=== PATIENT | female | born 1955 | race Caucasian/White ===

== ENCOUNTER → 2017-06-26 | Outpatient (CLI) | payer BC ==
[~2017-06-26] MED LIST: ASPIRIN E.C. 8181 MG PO; COUMADIN 5MG5 MG/TAB PO; LOVENOX 6060 MG/0.6 SQ; VERAPAMIL240 MG/TAB PO; ZESTRIL 10MG10 MG PO; ZOCOR5 MG PO
== END ==
LOC: MC.RAD 07:00
DX: Z12.31 Encounter for screening mammogram for malignant neoplasm of breast (principal)

== ENCOUNTER → 2018-06-27 | Outpatient (CLI) | payer BC | LOC: MC.RAD 07:00 | DX: Z12.31 Encounter for screening mammogram for malignant neoplasm of breast (principal); N64.89 Other specified disorders of breast ==

== ENCOUNTER → 2018-07-03 | Outpatient (CLI) | payer BC | LOC: MC.RAD 13:53 | DX: N64.89 Other specified disorders of breast (principal) | CPT/HCPCS: G0279 ==

== ENCOUNTER → 2019-09-10 | Outpatient (CLI) | payer BC | LOC: MC.RAD 07:27 | DX: Z12.31 Encounter for screening mammogram for malignant neoplasm of breast (principal) ==

== ENCOUNTER 2020-03-24 13:42 | Emergency (ER) | payer SELFPAY ==
[~2020-03-24] VITALS: Ht 170.2 cm; Wt 59.1 kg
[2020-03-24 13:47] VITALS: BP 160/94; TEMP 98.6
[2020-03-24] MEDS ORDERED: COUMADIN4 MG PO (14:00)
[2020-03-24] MEDS ORDERED: PRINIVIL20 MG PO (14:02)
[2020-03-24] MEDS ORDERED: ZETIA 10MG TAB10 MG PO (14:03)
[2020-03-24 15:07] VITALS: PULSE 77
== END 2020-03-24 15:07 | disposition home or self-care (01) ==
LOC: COL.ER 13:42
DX: S62.102A Fracture of unspecified carpal bone, left wrist, initial encounter for closed fracture (principal); Z79.01 Long term (current) use of anticoagulants; W01.0XXA Fall on same level from slipping, tripping and stumbling without subsequent striking against object, initial encounter

== ENCOUNTER → 2021-03-30 | Outpatient (CLI) | payer BC ==
[~2021-03-30] MED LIST changes: +BACTRIM DS 8001 TAB PO; +COUMADIN4 MG PO; +PRINIVIL20 MG PO; +ZETIA 10MG TAB10 MG PO
== END ==
LOC: MC.RAD 08:02
DX: Z12.31 Encounter for screening mammogram for malignant neoplasm of breast (principal)